=== PATIENT | male | born 1940 | race Caucasian/White ===

== ENCOUNTER 2016-08-01 17:34 | Observation (INO) | payer MEDICARE, OTHER ==
--- NOTE | 2016-08-01 18:44 | ED.PDOC ---
History of Present Illness - General Chief Complaint: Trauma Stated Complaint: weakness, syncope, fall Time Seen by Provider: 08/01/16 18:40 Source: patient, RN notes reviewed, Vital Signs reviewed, family Exam Limitations: no limitations - History of Present Illness Initial Comments: Patient stated that they just got [place] appointment but on arriving home as he was getting out from the car he passed out head hitting the side of the car was able to hold him from falling to the ground,he was able to perk up and got inside the house but still feeling wobbly called up onclogist office and was adviced to come to er.He has history of primary lung ca diagnosed in and started chemo and radiation treatment 2 1/2 weeks ago.CT Head07/28/16-no hemoorhage infarct or enhancing lesion. Timing/Duration: 1-3 hours Severity: moderate Improving Factors: nothing Worsening Factors: nothing Associated Symptoms: weakness - undergoing chemo and radiation treatment for lung ca Allergies/Adverse Reactions: Allergies Prednisolone [From Sulfacetamide-Prednisolone] Allergy (Intermediate, Verified 08/01/16 17:59) Sulfacetamide [From Sulfacetamide-Prednisolone] Allergy (Intermediate, Verified 08/01/16 17:59) Thimerosal [From Sulfacetamide-Prednisolone] Allergy (Intermediate, Verified 12/11 17:59) Home Medications: Ambulatory Orders Atorvastatin Calcium [Lipitor] 40 mg PO DAILY 02/26/14 Carvedilol Phosphate [Coreg Cr] 80 mg PO DAILY 02/10/15 Aspirin Buffered (Pola Carb-Mag [Bufferin] 1 tab PO 05/20/16 Review of Systems - Review of Systems Constitutional: States: no symptoms reported EENTM: States: no symptoms reported Respiratory: States: see HPI Cardiology: States: no symptoms reported Gastrointestinal/Abdominal: States: no symptoms reported Genitourinary: States: no symptoms reported Musculoskeletal: States: no symptoms reported Skin: States: no symptoms reported Neurological: States: see HPI Endocrine: States: no symptoms reported Hematologic/Lymphatic: States: no symptoms reported Past Medical History (General) - Patient Medical History Hx of COPD: Yes Hx Cardiac Disorders: Yes - MS, bypass, carotid Hx Congestive Heart Failure: No Hx Hypertension: Yes Hx Diabetes: No Hx Cancer: Yes - Lung Hx Hepatitis C: No Surgical History: coronary bypass surgery, other - right carotid ea - Vaccination History Hx Tetanus, Diphtheria Vaccination: Yes Hx Influenza Vaccination: Yes Hx Pneumococcal Vaccination: Yes - Social History Hx Tobacco Use: Yes Hx Alcohol Use: No Hx Substance Use: No - Activities of Daily Living Patient Lives Alone: No - Hospice Agency (if applicable):: None - Female History Patient is a Female of Child Bearing Age (10 -59 yrs old): No Patient : No Family Medical History - Family History Mother Living Status: Hx Family Cancer: Yes - lung-dad Hx Family;Other: renal disease-mom Physical Exam - Physical Exam General Appearance: Alert, Comfortable, No apparent distress Eye Exam: bilateral normal Ears, Nose, Throat: hearing grossly normal, normal ENT inspection, normal pharynx Neck: non-tender, full range of motion, supple Respiratory: chest non-tender, no respiratory distress, no accessory muscle use , wheezing Cardiovascular/Chest: normal peripheral pulses, regular rate, rhythm, no edema, no gallop, no JVD, no murmur Gastrointestinal/Abdominal: normal bowel sounds, non tender, soft, no organomegaly, no pulsatile mass Rectal Exam: normal rectal tone, heme positive stool, other - prostate slightly enlarged Back Exam: normal inspection, no CVA tenderness, no vertebral tenderness Extremity: non-tender, normal capillary refill Neurologic: no motor/sensory deficits, alert, normal mood/affect, oriented x 3 Skin Exam: normal color, warm/dry Lymphatic: no adenopathy Departure - Departure Clinical Impression: Dehydration, Anemia due to chemotherapy, Occult blood positive stool Syncope Qualifiers: Syncope type: unspecified Qualifier Code: (R55) Syncope and collapse Cancer of lung, upper lobe Qualifiers: Laterality: right Qualifier Code: (C34.11) Malignant neoplasm of upper lobe, right bronchus or lung Time of Disposition: 20:55 - D/W Dr. Emerson-Hospitalist Disposition: Admit Patient Departure Forms: Patient Portal Self Enrollment Referrals: Salvador Montague MD [Primary Care Provider] - 1-2 Weeks Home Medications: Ambulatory Orders Atorvastatin Calcium [Lipitor] 40 mg PO DAILY 02/26/14 Carvedilol Phosphate [Coreg Cr] 80 mg PO DAILY 02/10/15 Aspirin Buffered (Pola Carb-Mag [Bufferin] 1 tab PO 05/20/16
--- NOTE | 2016-08-01 18:51 | RAD ---
EXAM DESCRIPTION: Chest,1 View CLINICAL HISTORY: 76 years Male cough COMPARISON: Chest CT study from 05/09/2016 and chest x-ray study from 05/20/2016. FINDINGS: Right PICC tip overlies the mid SVC. The cardiomediastinal silhouette appears unremarkable. Changes from previous sternotomy. Subtle opacity is again visualized in the right lung apex which on a previous chest CT study was believed secondary to a mass lesion. Hyperexpanded lungs and linear areas of scarring in the lungs suggesting COPD. No definite pleural effusions. No pneumothorax. IMPRESSION: Subtle opacity overlying the right lung apex which was also visualized on a previous chest CT study. COPD. Electronically signed by: Akash Zayas MD 08/01/2016 6:50 PM MANAGER [employer]
[2016-08-01] MEDS ORDERED: ONDANSETRON INJ 4 MG/2 ML VIAL IV ONE (19:25)
[2016-08-01] MEDS ORDERED: PANTOPRAZOLE SODIUM IV 40 MG VIAL IV ONE (19:25)
[2016-08-01] MEDS ORDERED: MULTIPLE VITAMIN INJ 10 ML, FOLIC ACID INJ 1 MG in SODIUM CHLORIDE 0.9% 1000ML 1,000 ML IV SCH (19:30)
[2016-08-01] MEDS ORDERED: FOLIC ACID 1 MG TAB ONE (19:54)
[2016-08-01] MEDS ORDERED: MULTIPLE VITAMIN 10 ML VIAL ONE ×2 (19:54→22:22)
[2016-08-01] MEDS ORDERED: FOLIC ACID INJ 5 MG/ML VIAL ONE (19:57)
[2016-08-01] MEDS ORDERED: SODIUM CHLORIDE 0.9% 10 ML VIAL ONE (20:02)
[2016-08-01] MEDS ORDERED: SODIUM CHLORIDE 0.9% 1000ML 1,000 ML ONE (20:02)
--- NOTE | 2016-08-01 20:14 | CT ---
PROCEDURE: CTA Chest HISTORY: elevated d dimer syncopal episode lung ca Indication: Same as above Comparison: CT of the chest done on 05/09/2016 Technique: CT of the chest was done with intravenous contrast followed by CT angiography of the pulmonary arteries. Coronal, Sagittal and 3D volumetric MIP reconstructions were generated from the acquired data. The patient was injected with contrast intravenously, without any documented immediate adverse reactions. FINDINGS: There is no visualization of filling defects in the main pulmonary trunk, main right and left pulmonary arteries or their lower order branches to suggest pulmonary embolism. The bilateral main pulmonary arteries are normal in caliber. Note is again made of right apical lung mass, currently measuring 3.5 x 4.3 x 2.6 cm and is eroding the adjacent posterior fifth rib, suggestive of chest wall invasion. Note is also made of small infiltrates in the apical segment of the right lower lobe of the lung. Note is made of multiple small, predominantly subcentimeter lytic metastasis seen diffusely in the bilateral lung russo. There is interval evidence of multiple enlarged right paratracheal lymph nodes, suggestive of pathological lymphadenopathy. 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 Multiple collateral vasculature is seen in the mediastinum and along the chest wall The trachea, bilateral mainstem bronchi and the bilateral main segmental bronchi are patent without any intraluminal mass lesions. There is no gross evidence of clinically significant thoracic aortic aneurysm or thoracic aortic dissection. There is no clinically significant pericardial effusion. The thoracic bony rib cage appears grossly unremarkable. The visualized thoracic spine appears unremarkable. Note is made of median sternotomy. Limited evaluation of the evaluated upper abdomen does not show any gross abnormalities. IMPRESSION: There is no pulmonary embolism. Note is again made of right apical lung mass, currently measuring 3.5 x 4.3 x 2.6 cm and is eroding the adjacent posterior fifth rib, suggestive of chest wall invasion. Note is also made of small infiltrates in the apical segment of the right lower lobe of the lung. Note is made of multiple small, predominantly subcentimeter lytic metastasis seen diffusely in the bilateral lung russo. There is interval evidence of multiple enlarged right paratracheal lymph nodes, suggestive of pathological lymphadenopathy. 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 Multiple collateral vasculature is seen in the mediastinum and along the chest wall Electronically signed by: Kishore Zayas MD 08/01/2016 8:13 PM SALES AND SERVICE CONSULTANT
[2016-08-01] MEDS ORDERED: SUCRALFATE 1 GM/10 ML 1 GM UD PO ONE (20:38)
[2016-08-01] MEDS ORDERED: HYDROcodone 5MG/APAP 325MG 1 EA TAB PO PRN (21:47)
[2016-08-01] MEDS ORDERED: ONDANSETRON INJ 4 MG/2 ML VIAL IV PRN (21:47)
[2016-08-01] MEDS ORDERED: LEVALBUTEROL NEBS 1.25 MG/3 ML VIAL INH PRN (21:47)
[2016-08-01] MEDS ORDERED: MAGNESIUM HYDROXIDE 30 ML UD PO PRN (21:47)
--- NOTE | 2016-08-01 21:49 | HP ---
HISTORY OF PRESENT ILLNESS: This 76-year-old, white male had just returned from having his drive him from radiation treatment in [place] back to their home in [place]. He was getting out of the car when he became lightheaded and leaned against the door of the car and proceeded to lose consciousness and land on the ground. He hit his head slightly, but at the same time, there was no external evidence of significant injury. He was brought to the Emergency Room where he was found to be very weak, yet awake and alert. He was bothered for a while with a hiccup that did go away during the history discussion. He has had spells of fainting and passing out in the past noted on Emergency Room records etc. Of concern is that the patient last March came down with some hemoptysis and was diagnosed with non-small cell carcinoma of the lung, stage 3b. He was started on chemotherapy, which was held as he started radiation treatment. He is now about usp through about 36 radiation treatments. Another one is scheduled for tomorrow, which will be postponed because of his current symptoms. He has been very weak and has not been eating well at all now for several weeks, but especially the last four or five days. He had been drinking some Boost, but is not even getting that down and water even is not consumed. He received a bag of IV fluids yesterday as well as again today when getting out of his radiation therapy. He is placed in the hospital for overnight observation because of the syncope to check on telemetry and any cardiac rhythms contributing to it, but also to give some additional fluids, vitamins, as well as a trial of nutritional supplementation, etc. PAST SURGICAL HISTORY: 1. Bronchoscopy with biopsy to determine the cell type of the lung cancer. 2. Coronary artery bypass grafting after a heart attack in 2007 at which time he was diagnosed with a maker or apparently a left main coronary lesion and carotid occlusive disease with opening of the carotid on one side, but being completely occluded on the other side with significantly good collaterals present. CURRENT MEDICATIONS: 1. Buffered aspirin daily. 2. Lipitor 20 mg daily. 3. Coreg CR 80 mg daily. ALLERGIES: SULFA, PREDNISOLONE, THIMEROSAL. FAMILY HISTORY: Unremarkable. SOCIAL HISTORY: He has been a teacher and a head tennis coach. Tobacco consumption for many years, primarily as a pipe smoker. He stopped for a short period of time after his heart attack in 2007 and then restarted again after a few weeks and continued smoking for the next eight years until March of 2016 when the lung cancer was diagnosed. He is followed by Dr. Montague in the [facility] , Dr. Mirza, oncologist, Dr. Mars, claim taker, and Dr. Laguna, radiation oncologist in [place]. REVIEW OF SYSTEMS: GENERAL: The patient has lost about 15 pounds in the last five months from about 175 down to 162 pounds. No significant fever or chills. HEENT: No significant change of vision or hearing, but very weak. LUNGS: Some shortness of breath upon exertion. CARDIOVASCULAR: Significant chronic right lateral chest wall discomfort in his ribs present for a few years, which may be a metastatic lesion which is tender to palpation. GASTROINTESTINAL: Almost complete loss of appetite with some vomiting occasionally when he fills his stomach too past. Burning and possible esophagitis from the radiation also evident. No gross bleeding per rectum, but blood is noted on digital exam in the Emergency Room. GENITOURINARY: No significant burning. NEUROLOGIC: Significant weakness and syncopal episode. PHYSICAL EXAMINATION: VITAL SIGNS: Afebrile. Pulse 93. Blood pressure 150/80. Pulse oximetry 92% on room air. Initial blood pressure was down to 99/62. Pulse oximetry 94%. Weight 73.5 kg. GENERAL: The patient is awake and alert. He initially had some hiccups which cleared during the history discussion. The patient is weak. Color is quite pale. His is also present. HEENT: Unremarkable except for the very pale coloration with conjunctival pallor as well. NECK: No significant bruits, but history of carotid surgery on one carotid and complete occlusion on the opposite side. LUNGS: Diminished breath sounds bilaterally, especially in the right upper lung russo. CARDIOVASCULAR: Heart tones somewhat distant, yet regular. ABDOMEN: Somewhat tender to deep palpation, especially in the epigastrium. Otherwise, no organomegaly or masses noted. EXTREMITIES: Fairly well formed, no significant pedal edema. NEUROLOGIC: No focal neurological deficits are noted, but the patient is very noticeably weak with history of recent syncope, recurrent. LABORATORY: White count 6,100, hemoglobin 7.6 with a normocytic/normochromic presentation and normal platelet count, 93% neutrophils. INR 1.05. D-dimer 3141. Chemistries showed sodium low at 133, potassium 4.6, CO2 26, BUN 30, creatinine 0.69 with elevated BUN to creatinine ratio. Glucose elevated at 186 , calcium 8, but albumin is only 2.4. Liver enzymes otherwise unremarkable and troponin is 0. Beta natriuretic peptide is 52. Lipase is low. Stool guaiac is positive on one test. No cultures obtained. Chest x-ray did show some residual mass in the right upper lobe. Chest thoracic CTA showed no pulmonary embolism, but significant apical lung mass evident with measurements 3.5 x 4.3 x 2.6 cm eroding into the posterior fifth rib as well as abnormal lymph nodes present also in the right paratracheal region as well as involving the proximal and mid superior vena cava, suspicious of an early superior vena caval syndrome. ASSESSMENT: 1. Acute syncope, recurrent, probably related to the severely debilitated state , but also with probable significant vasovagal or hypotensive reaction by standing after being recumbent for his trip from [place]. 2. History of non-small cell lung cancer, stage 3b with local rib, lymph node metastases. 3. Gastrointestinal bleed with positive Hemoccult. 4. Hyponatremia. 5. Mild prerenal state with moderate dehydration. 6. Significant malnutrition with associated dehydration. 7. Anemia with hemoglobin of 7.6, normocytic/normochromic presentation. 8. Probable acute esophagitis on radiation treatment, symptomatic. 9. Coronary artery disease with a history of a myocardial infarction in 2007 with coronary artery bypass grafting and apparently a left common coronary vessel occlusive state. 10. Chronic constipation, aggravated by opioid pain medications. 11. Chronic rib pain. 12. Carotid occlusive disease. PLAN: The patient is placed in the hospital for overnight telemetry and observation. He will receive a second liter of fluid with D5 and normal saline with MVI present. We will recheck tilt vitals. Give a soft diet. Offer Boost for caloric intake. Recheck stool guaiacs. Try Nystatin oral as well as Carafate for the esophagus with Protonix IV. The patient will need specialized attention with the team from the oncology and radiation oncology departments in [place]. General condition is poor. Consider hospice to assist the with his ongoing care. #[id number] [facility]
[2016-08-01] MEDS: IV SET AND CAP CHANGE INJ INJ SCH ×2 (21:58→22:23)
[2016-08-01] MEDS ORDERED: NACL 0.9% IVS PRN (22:00)
[2016-08-01] MEDS ORDERED: MULTIPLE VITAMIN IVS PRN (22:00)
[2016-08-01] MEDS ORDERED: DEX IVS PRN (22:00)
[2016-08-01] MEDS: IPRATROPIUM/ALBUTEROL 3 ML VIAL INH SCH (22:14)
[2016-08-01] MEDS ORDERED: DEX 5% W/NACL 0.9% 1000ML 1,000 ML IVS ONE (22:21)
[2016-08-01] MEDS: SODIUM CHLORIDE 0.9% (FLUSH) 10 ML SYG IV PRN (22:27)
[2016-08-02] MEDS ORDERED: SODIUM CHLORIDE 0.9% 10 ML VIAL ONE (06:15)
[2016-08-02] MEDS ORDERED: PANTOPRAZOLE SODIUM IV 40 MG VIAL IV SCH (06:30)
[2016-08-02 06:31] VITALS: BP 97/61; TEMP 98.9
[2016-08-02] MEDS: SODIUM CHLORIDE 0.9% (FLUSH) 10 ML SYG IV PRN (06:36)
[2016-08-02] MEDS: SUCRALFATE 1 GM/10 ML 1 GM UD PO SCH ×2 (06:36→10:00)
[2016-08-02] MEDS ORDERED: SODIUM CHLORIDE 0.9% 10 ML VIAL IV PRN (07:25)
[2016-08-02] MEDS: IPRATROPIUM/ALBUTEROL 3 ML VIAL INH SCH (08:28)
[2016-08-02] MEDS ORDERED: DEX 5% W/NACL 0.9% 1000ML 1,000 ML IVS ONE (08:47)
[2016-08-02] MEDS ORDERED: MULTIPLE VITAMIN 10 ML VIAL ONE (08:48)
[2016-08-02] MEDS ORDERED: ASPIRIN EC 81 MG TAB PO ONE (09:00)
[2016-08-02] MEDS ORDERED: NYSTATIN SUSPENSION 5 ML UD MT SCH (09:00)
[2016-08-02] MEDS ORDERED: CARVEDILOL PHOSPHATE 80 MG PO SCH (09:00)
[2016-08-02 10:10] VITALS: O2SAT 95
--- NOTE | 2016-08-02 10:41 | DS ---
DISCHARGE DIAGNOSIS: 1. Acute syncopal episode, recurrent, probably related to the severely debilitated state with associated vasovagal and hypotensive reaction related to inadequate caloric and fluid intake associated with significant chemo and radiation therapy for cancer treatment. 2. History of non-small cell lung cancer, stage 3b with local rib, lymph node metastases. 3. Gastrointestinal bleed with positive Hemoccult. 4. Hyponatremia. 5. Mild prerenal state with moderate dehydration. 6. Significant malnutrition with associated dehydration. 7. Chronic anemia with hemoglobin of 7.6, normocytic/normochromic presentation. 8. Probable acute esophagitis on radiation therapy, symptomatic. 9. Coronary artery disease with a history of a myocardial infarction in 2007 with coronary artery bypass grafting and apparent left common coronary vessel occlusive state, " maker." 10. Chronic constipation, aggravated by chronic opioid pain medications. 11. Chronic rib pain. 12. History of carotid occlusive disease. HISTORY OF PRESENT ILLNESS: This 76-year-old, white male was placed in the hospital for overnight observation after significant syncopal episode with the patient falling backwards and hitting his head after returning from radiation therapy earlier this afternoon. He had received a bag of IV solution at the radiation treatment facility earlier today as well as yesterday, but still was having some significant symptoms suggesting postural hypotensive episodes. He has been very weak with chronic anemia, which is followed closely by his oncologist team. Significant symptoms of apparent esophagitis from the radiation to the chest is also of significant concern contributing to his poor fluid and nutritional intake. The patient was given at least three bags of fortified IV solutions with vitamin supplements. LABORATORY: White count 5,300, hemoglobin stabilized at about 7.4 with a normocytic/normochromic presentation. INR 1.05. Chemistries show potassium 4.2 , sodium is up from 133 to 135. BUN decreased from 30 to 26. Creatinine 0.68. BUN to creatinine ratio decreased from 43 to 38. Glucose 115. Osmolality 275 , magnesium 2. Liver enzyme unremarkable except for low bilirubin. Troponin 0 , beta natriuretic peptide 52, albumin 2.4, lipase low, TSH normal at 0.53. Urinalysis generally clean. Stool guaiac positive on one test. No cultures obtained. Radiographs were performed and chest x-ray did show the residual subtle opacity in the right lung apex suggesting a mass lesion. CTA of the thorax was performed because of elevated D-dimer and showed no pulmonary emboli. The apical lung mass was noted at 3.5 by 4.3 by 2.6 cm in the right upper lobe with some adjacent eroding of the posterior fifth rib suggesting invasion. Metastatic lesions also noted as well as paratracheal lymph nodes. Close followup is necessary. HOSPITAL COURSE: The patient was feeling much improved on the morning of discharge. He was able to stand up and ambulate without significant symptomatology. He was awake and alert and looking forward to continued outpatient management. PLAN: Discharge home with followup with Dr. Montague, primary care physician, in the next one to two weeks as needed. They will call the radiation center later today to reschedule further radiation treatments. Special attention to adequate fluid and nutritional intake necessary. Try slurries and Boost with the 's assistance. Followup with the oncologist regarding the anemia. Observe for blood loss in the stools. Start some Carafate and continue the Protonix. Try Zofran ODT sublingual approach if needed for the nausea. Special attention to adequate fluid and nutrition is most important. Return if not improving. #[id number] [facility]
== END 2016-08-02 11:45 | disposition home or self-care (01) ==
LOC: ER 17:34 → MS 21:48
PROVIDERS: ADMIT Emergency Medicine; ATTEND Emergency Medicine
DX: R55 Syncope and collapse (principal); R54 Age-related physical debility; I95.89 Other hypotension; C34.11 Malignant neoplasm of upper lobe, right bronchus or lung; C77.9 Secondary and unspecified malignant neoplasm of lymph node, unspecified; C79.51 Secondary malignant neoplasm of bone; K92.2 Gastrointestinal hemorrhage, unspecified; E87.1 Hypo-osmolality and hyponatremia; E86.0 Dehydration; E46 Unspecified protein-calorie malnutrition; D63.0 Anemia in neoplastic disease; I25.10 Atherosclerotic heart disease of native coronary artery without angina pectoris; I25.2 Old myocardial infarction; K59.09 Other constipation; R07.81 Pleurodynia; G89.29 Other chronic pain; I65.29 Occlusion and stenosis of unspecified carotid artery; Z92.21 Personal history of antineoplastic chemotherapy; Z92.3 Personal history of irradiation; Z79.891 Long term (current) use of opiate analgesic; Z79.82 Long term (current) use of aspirin; Z79.899 Other long term (current) drug therapy; Z88.2 Allergy status to sulfonamides; Z88.8 Allergy status to other drugs, medicaments and biological substances; Z95.1 Presence of aortocoronary bypass graft; W18.39XA Other fall on same level, initial encounter; Y93.89 Activity, other specified; Y92.008 Other place in unspecified non-institutional (private) residence as the place of occurrence of the external cause; Z80.1 Family history of malignant neoplasm of trachea, bronchus and lung; Z84.1 Family history of disorders of kidney and ureter
CPT/HCPCS: 36415 ×2; 71010; 71275; 80053 ×2; 81001; 82270; 82550; 82553; 83690; 83735; 83880; 84443; 84484; 85025 ×2; 85379; 85610; 85730; 93005; 94640 ×2; 94760 ×2; 96365; 96366 ×2; 96375; 96376; 99284; G0378; J2405; J7030 ×2; J7620 ×2; J7799